=== PATIENT | female | born 1995 | race Caucasian/White ===

== ENCOUNTER 2017-11-22 00:21 | Emergency (ER) | payer MEDICAID ==
[~2017-11-22] VITALS: Ht 157.5 cm; Wt 55.3 kg
[2017-11-22] MEDS ORDERED: ACETAMINOPHEN/CODEINE 300-30 MG TABLET PO ONE (01:00)
--- NOTE | 2017-11-22 01:10 | NUR ---
Patient in bed, no acute distress noted. AAOx4. Able to make needs known.
[2017-11-22 01:16] LABS: BASOPHILS % (AUTO) 0.4 % (0.0-2.0); EOSINOPHILS # (AUTO) 0.3 K/uL (0.0-0.7); EOSINOPHILS % (AUTO) 4.2 % (0.0-7.0); HEMATOCRIT 37.3 % (31.2-41.9); HEMOGLOBIN 12.5 g/dL (10.9-14.3); LYMPHOCYTES # (AUTO) 1.1 K/uL (20.0-40.0); MEAN CORPUSCULAR HEMOGLOBIN 28.3 uug (24.7-32.8); MEAN CORPUSCULAR HGB CONC 34 g/dL (32.3-35.6); MEAN CORPUSCULAR VOLUME 84.1 fL (75.5-95.3); MONOCYTES # (AUTO) 0.6 K/uL (2.0-10.0); MONOCYTES % (AUTO) 9.4 % (0.0-11.0); NEUTROPHILS # (AUTO) 4.5 K/uL (1.8-8.9); PLATELET COUNT (AUTO) 154 K/uL (179-408); RED BLOOD CELL COUNT(AUTO) 4.44 MIL/uL (3.63-4.92); WHITE BLOOD COUNT (AUTO) 6.6 K/uL (3.8-11.8)
[2017-11-22 01:28] LABS: CREATININE 0.7 mg/dL (0.6-1.3); POTASSIUM 3.5 mmol/L (3.5-5.1)
[2017-11-22] MEDS ORDERED: ACETAMINOPHEN/CODEINE 300-30 MG TABLET ONE (01:29)
[2017-11-22 01:37] LABS: BILIRUBIN,DIRECT 0.1 mg/dL (0.0-0.2); BILIRUBIN,TOTAL 0.3 mg/dL (0.2-1.0); TOTAL PROTEIN, SERUM 7.3 g/dL (6.4-8.2)
[2017-11-22 01:47] LABS: *BILIRUBIN,URIN NEGATIVE (NEGATIVE); *BLOOD, URINE 2+ (NEGATIVE); *COLOR,URINE YELLOW (YELLOW); *KETONES,URINE NEGATIVE (NEGATIVE); *PROTEIN,URINE NEGATIVE (NEGATIVE); *UROBILINOGEN,URINE 0.2 E.U./dl (NORMAL); LEUKOCYTE ESTERASE ,URINE TRACE (NEGATIVE); NITRITE, URINE NEGATIVE (NEGATIVE); UGLUCOSE NEGATIVE (NEGATIVE)
[2017-11-22 01:48] LABS: *CLARITY,URINE HAZY (CLEAR)
[2017-11-22 01:50] LABS: *URINE HCG, QUAL POSITIVE (NEGATIVE)
[2017-11-22 02:09] LABS: BACTERIA,URINE NONE SEEN /HPF (NONE SEEN); MUCUS,URINE FEW /LPF (0-FEW); SQUAMOUS EPITHELIAL CELL,UR MANY /HPF (NONE SEEN)
--- NOTE | 2017-11-22 02:42 | NUR ---
US at bedside.
--- NOTE | 2017-11-22 04:32 | NUR ---
PT IN RESTROOM. PT ABLE TO AMBULATE UNASSISTED W/ STEADY GAIT. NO SIGNS OF DISTRESS HAVE BEEN WITNESSED. AWAITING US RESULTS.
--- NOTE | 2017-11-22 04:58 | NUR ---
Patient discharged to home in stable conditon. Written and verbal after care instructions given. Patient verbalizes understanding of instructions. Addendum: 11/22/17 at 0459 by JCALLOWAY Patient discharged to home in stable conditon. Written and verbal after care instructions given. Patient verbalizes understanding of instructions. Ambulated from ER w/ stable gait. All belongings w/ pt. Peripheral IV removed prior to d/c.
[2017-11-22 05:01] VITALS: BP 132/75
== END 2017-11-22 05:03 | disposition home or self-care (01) ==
LOC: ER 00:27
DX: O03.4 Incomplete spontaneous abortion without complication (principal); R10.2 Pelvic and perineal pain
CPT/HCPCS: 36415; 76856; 80048; 80076; 81001; 84702; 84703; 85025; 85730; 86850; 86900; 86901; 99285; A4663

== ENCOUNTER 2018-01-20 22:34 | Emergency (ER) | payer MEDICAID ==
[~2018-01-20] VITALS: Ht 160 cm; Wt 57.6 kg
--- NOTE | 2018-01-20 23:03 | NUR ---
PT PRESENTS W/ MULTIPLE COMPLAINTS. CHIEF C/O RT ANKLE PAIN POST FALL EARLIER TODAY. ANKLE IS SWOLLEN. PT ALSO STATES SHE DOES NOT REMEMBER HER LMP, AND ISN'T SURE IF SHE MIGHT BE .
--- NOTE | 2018-01-20 23:17 | NUR ---
DR LIN, LACIE MD AT BEDSIDE FOR MSE.
--- NOTE | 2018-01-20 23:22 | NUR ---
PT STATES SHE BELIEVES SHE HAS AN OLD PIECE OF GLASS STUCK IN HER L RING FINGER THAT SHE HAD SURGERY IN [facility] TO REMOVE, WHICH BECAME PAINFUL AGAIN AFTER HER FALL TODAY
[2018-01-20] MEDS ORDERED: ACETAMINOPHEN ES 500 MG TABLET ONE (23:24)
[2018-01-20] MEDS ORDERED: ACETAMINOPHEN ES 500 MG TABLET PO ONE (23:30)
--- NOTE | 2018-01-20 23:45 | NUR ---
PT AMBULATED FROM WHEELCHAIR TO BATHROOM W/ STEADY GAIT TO PROVIDE URINE SAMPLE.
[2018-01-21 00:08] LABS: *BILIRUBIN,URIN NEGATIVE (NEGATIVE); *BLOOD, URINE NEGATIVE (NEGATIVE); *CLARITY,URINE CLEAR (CLEAR); *COLOR,URINE LIGHT YELLOW (YELLOW); *KETONES,URINE NEGATIVE (NEGATIVE); *PROTEIN,URINE NEGATIVE (NEGATIVE); *UROBILINOGEN,URINE 0.2 E.U./dl (NORMAL); LEUKOCYTE ESTERASE ,URINE NEGATIVE (NEGATIVE); NITRITE, URINE NEGATIVE (NEGATIVE); PH,URINE 5.5 (5.0-8.0); UGLUCOSE NEGATIVE (NEGATIVE)
[2018-01-21 00:21] LABS: BACTERIA,URINE NONE SEEN /HPF (NONE SEEN); RBC,URINE 0-3 /HPF (0-3); SQUAMOUS EPITHELIAL CELL,UR MODERATE /HPF (NONE SEEN); WBC,URINE NONE SEEN /HPF (0-3)
[2018-01-21 00:22] LABS: *URINE HCG, QUAL NEGATIVE (NEGATIVE)
--- NOTE | 2018-01-21 00:28 | NUR ---
XRAY AT PT BEDSIDE.
--- NOTE | 2018-01-21 01:22 | NUR ---
PT SITTING COMFORTABLY IN BED. NO DISTRESS NOTED.
--- NOTE | 2018-01-21 01:50 | NUR ---
Patient discharged to home in stable conditon. Written and verbal after care instructions given. Patient verbalizes understanding of instructions. Pt ambulated steadily on crutches from ER, accompanied by significant other. Pt denies pain, and verbalizes that she will follow up with referred specialist.
[2018-01-21 01:53] VITALS: BP 114/80
== END 2018-01-21 01:54 | disposition home or self-care (01) ==
LOC: ER 22:34
DX: S93.601A Unspecified sprain of right foot, initial encounter (principal); W01.0XXA Fall on same level from slipping, tripping and stumbling without subsequent striking against object, initial encounter; Y93.89 Activity, other specified; Y92.89 Other specified places as the place of occurrence of the external cause; Y99.8 Other external cause status
CPT/HCPCS: 73130; 73630; 84703; A4663; A9150

== ENCOUNTER 2019-11-19 13:09 | Emergency (ER) | payer MEDICAID, OTHER ==
[~2019-11-19] VITALS: Ht 157.5 cm; Wt 61.7 kg
[2019-11-19 13:46] LABS: *BILIRUBIN,URIN NEGATIVE (NEGATIVE); *BLOOD, URINE NEGATIVE (NEGATIVE); *CLARITY,URINE CLEAR (CLEAR); *COLOR,URINE YELLOW (YELLOW); *KETONES,URINE NEGATIVE (NEGATIVE); *UROBILINOGEN,URINE 0.2 E.U./dl (NORMAL); LEUKOCYTE ESTERASE ,URINE TRACE (NEGATIVE); NITRITE, URINE NEGATIVE (NEGATIVE); UGLUCOSE NEGATIVE (NEGATIVE)
[2019-11-19 13:47] LABS: *URINE HCG, QUAL NEGATIVE (NEGATIVE)
[2019-11-19 14:19] LABS: BASOPHILS % (AUTO) 0.3 % (0.0-2.0); EOSINOPHILS # (AUTO) 0.3 K/uL (0.0-0.7); EOSINOPHILS % (AUTO) 2.7 % (0.0-7.0); HEMATOCRIT 41.8 % (31.2-41.9); HEMOGLOBIN 13.8 g/dL (10.9-14.3); LYMPHOCYTES # (AUTO) 1.7 K/uL (20.0-40.0); LYMPHOCYTES % (AUTO) 15.2 % (20.5-51.5); MEAN CORPUSCULAR HEMOGLOBIN 27.4 uug (24.7-32.8); MEAN CORPUSCULAR HGB CONC 33 g/dL (32.3-35.6); MEAN CORPUSCULAR VOLUME 83.2 fL (75.5-95.3); MONOCYTES # (AUTO) 0.5 K/uL (2.0-10.0); MONOCYTES % (AUTO) 4.7 % (0.0-11.0); NEUTROPHILS # (AUTO) 8.7 K/uL (1.8-8.9); NEUTROPHILS % (AUTO) 77.1 % (38.5-71.5); PLATELET COUNT (AUTO) 244 K/uL (179-408); RED BLOOD CELL COUNT(AUTO) 5.03 MIL/uL (3.63-4.92); WHITE BLOOD COUNT (AUTO) 11.2 K/uL (3.8-11.8)
[2019-11-19 14:24] LABS: CREATININE 0.6 mg/dL (0.6-1.3); POTASSIUM 3.8 mmol/L (3.5-5.1)
[2019-11-19 14:29] LABS: BILIRUBIN,DIRECT 0.1 mg/dL (0.0-0.2); BILIRUBIN,TOTAL 0.5 mg/dL (0.2-1.0); TOTAL PROTEIN, SERUM 8.3 g/dL (6.4-8.2)
--- NOTE | 2019-11-19 16:44 | NUR ---
Patient discharged to home in stable conditon. Written and verbal after care instructions given. Patient verbalizes understanding of instructions.pt walks in steady gait.
--- NOTE | 2019-11-19 16:46 | NUR ---
er md at bedside going through a lengthy detailed discussion for the benefit ct to be done. pt in favor of going home and come back for recheck in 12 hours.
--- NOTE | 2019-11-19 17:01 | NUR ---
Note radha in EDM - 11/19/19 at 1703 by ESTHER Patient discharged to home in stable conditon. Written and verbal after care instructions given. Patient verbalizes understanding of instructions.PT UNDERSTANDS THAT SHE HAS TO BEE RECHECKED IN 12 HOURS UNLESS THE PAIN INCREASES TONIGHT AND SHE NEEDS TO COME BACK IMMMEDIATELY.
[2019-11-19 17:04] VITALS: BP 109/69
--- NOTE | 2019-11-19 17:04 | NUR ---
atient discharged to home in stable conditon. Written and verbal after care instructions given. Patient verbalizes understanding of instructions.PT UNDERSTANDS THAT SHE HAS TO BEE RECHECKED IN 12 HOURS UNLESS THE PAIN INCREASES TONIGHT AND SHE NEEDS TO COME BACK IMMMEDIATELY.
== END 2019-11-19 17:05 | disposition home or self-care (01) ==
LOC: ER 13:09
DX: N83.201 Unspecified ovarian cyst, right side (principal)
CPT/HCPCS: 36415; 76856; 83690; 84703; 85025; A4663

== ENCOUNTER 2019-11-20 17:21 | Emergency (ER) | payer OTHER ==
[~2019-11-20] VITALS: Ht 157.5 cm; Wt 61.7 kg
--- NOTE | 2019-11-20 17:47 | NUR ---
Patient discharged to home in stable conditon. Written and verbal after care instructions given. Patient verbalizes understanding of instructions.
== END 2019-11-20 17:48 | disposition home or self-care (01) ==
LOC: ER 17:22
DX: R10.31 Right lower quadrant pain (principal)
CPT/HCPCS: A4663